=== PATIENT | male | born 1970 | race Caucasian/White ===

== ENCOUNTER 2017-03-31 06:00 | Emergency (ER) | payer BC ==
[~2017-03-31] VITALS: Ht 175.3 cm; Wt 122.5 kg
[~2017-03-31 06:00] MED LIST: ACHYD1T PO; KETO-22 PO; LISI1TAB8 PO; NITR-65 PO; OXYC-109 PO; PHEN-452 PO; PHEN200T27 PO; SILD25TA PO; SULF1TAB7 PO; TMSL.4C PO
[2017-03-31] MEDS ORDERED: methylPREDNISolone 125 MG (Solu-MEDROL) VIAL IVP ONE (06:30)
[2017-03-31] MEDS ORDERED: diphenhydrAMINE 50 MG/ML INJ (BENADRYL) IVP ONE (06:30)
--- NOTE | 2017-03-31 06:32 | ED General ---
General Chief Complaint: Allergic Reaction Stated Complaint: ALLERGIC RXN,JUST USED EPI PEN Source of Information: Patient Exam Limitations: No Limitations History of Present Illness Time Seen by Provider: 06:27 Initial Comments The patient's a 46-year-old white male who presents with a chief complaint of intense hives and itching. The patient relates that he is allergic to "everything". This is a many year problem. He has had allergy testing by Dr. Blood. He declined the desensitization treatment as he thought it to be too onerous. He has not changed anything about his routine. He got up this morning intensely itchy and covered by a red virtually total body rash. He denies swelling of lips or tongue. There is no shortness of breath. He took an EpiPen at home. His states that he normally is able to break this with Zyrtec. He reports that this happened last weekend and he was able to manage it at home. This seems to be much worse than that attack however. Timing/Duration: 1-3 Hours Allergies and Home Medications Allergies Coded Allergies: levofloxacin (Verified Allergy, Mild, RASH, 03/24/14) Home Medications Hydrocodone Bit/Acetaminophen 1 Tab Tablet, 1-2 TAB PO Q4H, #20 MAY TAKE 1 OR 2 TABS BY MOUTH EVERY 4 HRS NEEDED FOR PAIN. DO NOT EXCEED 4000 MG TYLENOL(ACETAMINOPHEN) IN A 24 HR PERIOD. Prescribed by: ZENOBIA MOSLEY on 03/24/14 1402 Ketorolac Tromethamine 10 Mg Tablet, 10 MG PO Q8H PRN for PAIN, #20 Prescribed by: SAVANA MIRZA on 04/18/14 182 Lisinopril/Hydrochlorothiazide 1 Tab Tablet, 2 TAB PO DAILY, (Reported) Nitrofurantoin/Nitrofuran Mac 100 Mg Capsule, 1 EACH PO BID, #20 FOR INFECTION Prescribed by: SAVANA MIRZA on 04/18/14 182 Oxycodone Hcl/Acetaminophen 1 Each Tablet, 1 EACH PO Q4H, #15 Prescribed by: SAVANA MIRZA on 04/18/14 182 Phenazopyridine Hcl 200 Mg Tablet, 1 EACH PO TID PRN, #15 MAY TAKE 1 TABLET BY MOUTH UP TO 3 TIMES A DAY NEEDED FOR BLADDER PAIN/ SPASMS Prescribed by: ZENOBIA MOSLEY on 03/24/14 1402 Phentermine Hcl 30 Mg Capsule, 30 MG PO DAILY, (Reported) Sildenafil Citrate 25 Mg Tablet, 25 MG PO WEEKLY, (Reported) Tamsulosin Hcl 0.4 Mg Cap, 0.4 MG PO DAILY, (Reported) Constitutional: see HPI EENTM: no symptoms reported Respiratory: no symptoms reported Cardiovascular: no symptoms reported Gastrointestinal: no symptoms reported Genitourinary: no symptoms reported Musculoskeletal: no symptoms reported Skin: pruritus Psychiatric/Neurological: No Symptoms Reported Other He is covered with a diffuse rather fiery red erythema. The lips and tongue are not swollen however the ears are totally impressive and beefy Past Mvspyay-Omnfuj-Noskvo Hx Patient Social History Recent Foreign Travel: No Contact w/Someone Who Travel: No Surgeries HX Surgeries: Yes (KIDNEY STONE, WISDOM TEETH, ) Respiratory Hx Respiratory Disorders: No Cardiovascular Hx Cardiac Disorders: Yes Neurological Hx Neurological Disorders: No Genitourinary Hx Genitourinary Disorders: Yes (STONES) Gastrointestinal Hx Gastrointestinal Disorders: No Musculoskeletal Hx Musculoskeletal Disorders: No Endocrine Hx Endocrine Disorders: No HEENT HX ENT Disorders: No Cancer Hx Cancer: No Psychosocial Hx Psychiatric Problems: No Integumentary HX Skin/Integumentary Disorder: No Blood Transfusions Hx Blood Disorders: No Physical Exam Vital Signs Vital Sign - Last 12Hours 03/31/17 06:05 Temp 98.8 Pulse 74 Resp 18 B/P (MAP) 156/105 Pulse Ox 95 O2 Delivery Room Air Capillary Refill : General Appearance: Moderate Distress Eyes: Bilateral Eye Normal Inspection HEENT: Other (the ears are thick be feet and red hot.) Neck: Normal Inspection Respiratory: Chest Non Tender, Lungs Clear, Normal Breath Sounds, No Accessory Muscle Use, No Respiratory Distress Cardiovascular: Regular Rate, Rhythm, No Edema, No Gallop, No JVD, No Murmur, Normal Peripheral Pulses Gastrointestinal: Normal Bowel Sounds, No Organomegaly, No Pulsatile Mass, Non Tender, Soft Back: Normal Inspection, No CVA Tenderness, No Vertebral Tenderness Extremity: Normal Capillary Refill, Normal Inspection, Normal Range of Motion, Non Tender, No Calf Tenderness, No Pedal Edema Neurologic/Psychiatric: Alert, Oriented x3, No Motor/Sensory Deficits, Normal Mood/Affect Comments The skin is fiery red and virtually the total extent. 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 The throat and lips are unremarkable. The ears are thick, warm to touch, and extremely beefy appearing bilateral Progress/Results/Core Measures Results/Orders Lab Results Laboratory Tests Test 03/31/17 06:12 Range/Units White Blood Count 10.6 4.3-11.0 10^3/uL Red Blood Count 5.61 4.35-5.85 10^6/uL Hemoglobin 18.3 H 13.3-17.7 G/DL Hematocrit 53 40-54 % Mean Corpuscular Volume 94 80-99 FL Mean Corpuscular Hemoglobin 33 25-34 PG Mean Corpuscular Hemoglobin Concent 35 32-36 G/DL Red Cell Distribution Width 12.5 10.0-14.5 % Platelet Count 365 130-400 10^3/uL Mean Platelet Volume 8.7 7.4-10.4 FL Neutrophils (%) (Auto) 39 L 42-75 % Lymphocytes (%) (Auto) 50 H 12-44 % Monocytes (%) (Auto) 5 0-12 % Eosinophils (%) (Auto) 5 0-10 % Basophils (%) (Auto) 0 0-10 % Neutrophils # (Auto) 4.2 1.8-7.8 X 10^3 Lymphocytes # (Auto) 5.4 H 1.0-4.0 X 10^3 Monocytes # (Auto) 0.6 0.0-1.0 X 10^3 Eosinophils # (Auto) 0.5 H 0.0-0.3 10^3/uL Basophils # (Auto) 0.0 0.0-0.1 10^3/uL Sodium Level 141 135-145 MMOL/L Potassium Level 3.3 L 3.6-5.0 MMOL/L Chloride Level 103 98-107 MMOL/L Carbon Dioxide Level 24 21-32 MMOL/L Anion Gap 14 5-14 MMOL/L Blood Urea Nitrogen 14 7-18 MG/DL Creatinine 0.86 0.60-1.30 MG/DL Estimat Glomerular Filtration Rate > 60 BUN/Creatinine Ratio 16 Glucose Level 158 H 70-105 MG/DL Calcium Level 8.8 8.5-10.1 MG/DL Total Bilirubin 1.1 H 0.1-1.0 MG/DL Aspartate Amino Transf (AST/SGOT) 19 5-34 U/L Alanine Aminotransferase (ALT/SGPT) 26 0-55 U/L Alkaline Phosphatase 70 40-136 U/L Total Protein 6.8 6.4-8.2 G/DL Albumin 4.3 3.2-4.5 G/DL My Orders Orders - MYNOR LU MD Methylprednisolone Sod Succ (Solu-Medrol (03/31/17 06:30) Diphenhydramine Injection (Benadryl Inje (03/31/17 06:30) Cbc With Automated Diff (03/31/17 06:36) Comprehensive Metabolic Panel (03/31/17 06:36) Medications Given in ED Current Medications Medications Dose Ordered Sig/Zaid Route Start Time Stop Time Status Last Admin Dose Admin Diphenhydramine HCl 50 mg ONCE ONCE IVP 03/31/17 06:30 03/31/17 06:32 DC 03/31/17 06:27 50 MG Methylprednisolone Sodium Succinate 125 mg ONCE ONCE IVP 03/31/17 06:30 03/31/17 06:32 DC 03/31/17 06:27 125 MG Vital Signs/I&O Vital Sign - Last 12Hours 03/31/17 06:05 Temp 98.8 Pulse 74 Resp 18 B/P (MAP) 156/105 Pulse Ox 95 O2 Delivery Room Air Departure Communication Progress Notes 08 40 reexam: Patient looks much better at this point in time his trunk has minimum erythema. Legs and arms are also improved. The ears are curious in that the cartilaginous portions to the pinna are normal in appearance, the lobes continued to look quite swollen. Impression Impression: Primary Impression: diffuse urticaria Disposition: 01 HOME, SELF-CARE Condition: Improved Departure-Patient Inst. Decision time for Depature: 08:40 Referrals: SAEID LOAIZA MD (PCP/Family) Primary Care Physician Patient Instructions: Anaphylaxis (DC) Add. Discharge Instructions: All discharge instructions reviewed with patient and/or family. Voiced understanding. Acquire Benadryl 25 mg and take 25-50 mg every 4 hours as needed. In addition you have been given prednisone and should take it as directed Avoid stimulants such as hot showers Sometime in the next week you need to have your primary obtain a CBC to recheck the hemoglobin as it was elevated at this time Consider or reconsider the possibility of desensitization therapy Scripts Prednisone (Prednisone) 20 Mg Tab 40 MG PO twice a day, #10 TAB Prov: MYNOR LU MD 03/31/17 MYNOR LU MD March 31, 2017 06:32
[2017-03-31 06:40] LABS: BASOPHILS % (AUTO) 0 % (0-10); EOSINOPHILS # (AUTO) 0.5 10^3/uL (0.0-0.3); EOSINOPHILS % (AUTO) 5 % (0-10); LYMPHOCYTES # (AUTO) 5.4 X 10^3 (1.0-4.0); LYMPHOCYTES % (AUTO) 50 % (12-44); MEAN CORPUSCULAR HEMOGLOBIN 33 PG (25-34); MEAN CORPUSCULAR HGB CONC 35 G/DL (32-36); MEAN CORPUSCULAR VOLUME 94 FL (80-99); MEAN PLATELET VOLUME 8.7 FL (7.4-10.4); MONOCYTES # (AUTO) 0.6 X 10^3 (0.0-1.0); MONOCYTES % (AUTO) 5 % (0-12); NEUTROPHILS # (AUTO) 4.2 X 10^3 (1.8-7.8); NEUTROPHILS % (AUTO) 39 % (42-75); PLATELET COUNT 365 10^3/uL (130-400); RED BLOOD COUNT 5.61 10^6/uL (4.35-5.85); RED CELL DISTRIBUTION WIDTH 12.5 % (10.0-14.5); WHITE BLOOD COUNT 10.6 10^3/uL (4.3-11.0)
[2017-03-31 06:52] LABS: ALANINE AMINOTRANSFERASE 26 U/L (0-55); ALBUMIN 4.3 G/DL (3.2-4.5); ANION GAP 14 MMOL/L (5-14); ASPARTATE AMINO TRANSFERASE 19 U/L (5-34); BILIRUBIN,TOTAL 1.1 MG/DL (0.1-1.0); BLOOD UREA NITROGEN 14 MG/DL (7-18); BUN/CREATININE RATIO 16; CALCIUM 8.8 MG/DL (8.5-10.1); CARBON DIOXIDE 24 MMOL/L (21-32); CHLORIDE 103 MMOL/L (98-107); CREATININE SERUM 0.86 MG/DL (0.60-1.30); GFR ESTIMATED > 60; GLUCOSE 158 MG/DL (70-105); POTASSIUM 3.3 MMOL/L (3.6-5.0); SODIUM 141 MMOL/L (135-145); TOTAL PROTEIN 6.8 G/DL (6.4-8.2)
[2017-03-31] MEDS ORDERED: PRD20T PO (08:43)
[2017-03-31 08:56] VITALS: BP 129/104
== END 2017-03-31 08:59 | disposition home or self-care (01) ==
LOC: EDUNIT# 06:00 → ER 06:02
DX: L50.0 Allergic urticaria (principal)
CPT/HCPCS: 36415; 80053; 85025; 96374; 96375

== ENCOUNTER → 2018-06-06 | Outpatient (CLI) | payer BC ==
[~2018-06-06] MED LIST changes: +PRD20T PO
--- NOTE | 2018-06-06 17:20 | Diagnostic Imaging Report ---
EXAMINATION: Thoracic spine. FINDINGS: AP and lateral views were obtained. The upper most thoracic spine is not included on the lateral view but appears normal on the AP view. The vertebral body heights and alignment are within normal limits and similar in appearance to the prior exam of 04/18/2014. There is no fracture or acute bony abnormality evident. The intervertebral disc spaces are fairly well maintained. There is no sign of a paraspinal mass. IMPRESSION: 1. There is no evidence for an acute bony abnormality on this suboptimal exam. 2. If clinical concern regarding an underlying abnormality persists, then MRI will be recommended for further study. Dictated by: Dictated on workstation # [id number]
== END ==
LOC: RAD 15:18
DX: M46.04 Spinal enthesopathy, thoracic region (principal)
CPT/HCPCS: 72070

== ENCOUNTER → 2018-07-22 | Outpatient (CLI) | payer BC ==
--- NOTE | 2018-07-22 08:28 | Diagnostic Imaging Report ---
INDICATION: Renal calculi. FINDINGS: Supine views of the abdomen are obtained which reveal [id number] amount of stool throughout the colon. No free intraperitoneal gas or pneumatosis is identified and there is no evidence of bowel obstruction. There are faint punctate calcifications in the right upper quadrant which likely represent central renal stones. There is no evidence of calcification along the course of the ureters. IMPRESSION: Central calculi in the right kidney without other evidence of acute abnormality in the abdomen. Dictated by: Dictated on workstation # [id number]
--- NOTE | 2018-07-22 10:10 | Diagnostic Imaging Report ---
PROCEDURE: CT abdomen and pelvis without contrast. TECHNIQUE: Multiple contiguous axial images were obtained through the abdomen and pelvis without the use of intravenous contrast. INDICATION: Right flank pain with history of kidney stones. Comparison is made with prior CT from 04/18/2014. The lung bases are clear. Liver again demonstrates generalized low density consistent with hepatic steatosis. No discrete mass is seen. The gallbladder is contracted. The pancreas and spleen are unremarkable. No adrenal mass is identified. Nonobstructing calculi are identified on the right, similar to prior exam largest 4 mm. No ureteral calculi are detected. No hydronephrosis is seen. The aorta is non-aneurysmal. The small and large bowel loops are normal caliber. No obstruction is seen. The appendix is visualized and unremarkable. There is no ascites. There is mild diverticulosis of the sigmoid colon but no evidence of acute diverticulitis. The bladder is decompressed. Prostate is unremarkable. IMPRESSION: 1. Nonobstructing right renal calculi. No ureteral calculi or hydronephrosis is seen. 2. Hepatic steatosis. 3. Uncomplicated diverticulosis. Dictated by: Dictated on workstation # [id number]
== END ==
LOC: RAD 07:24
PROVIDERS: ATTEND Urology
DX: N20.0 Calculus of kidney (principal); K57.30 Diverticulosis of large intestine without perforation or abscess without bleeding; K76.0 Fatty (change of) liver, not elsewhere classified
CPT/HCPCS: 74018; 74176

== ENCOUNTER 2018-07-29 15:39 | Outpatient (RCR) | payer BC | END 2018-08-11 | disposition home or self-care (01) | LOC: LAB 15:39 | PROVIDERS: ATTEND Urology | DX: N20.0 Calculus of kidney (principal) | CPT/HCPCS: 82140; 82340; 82507; 82570; 83735; 83945; 83986; 84105; 84133; 84300; 84392; 84560 ==

== ENCOUNTER → 2021-12-01 | Outpatient (CLI) | LOC: MERGE 08:00 → LABNPT 08:00 | DX: Z20.822 Contact with and (suspected) exposure to COVID-19 (principal) | CPT/HCPCS: 87635 ==

== ENCOUNTER → 2021-12-02 | Outpatient (CLI) | payer BC | LOC: LABNPT 06:56 | DX: Z53.9 Procedure and treatment not carried out, unspecified reason (principal) ==